=== PATIENT | female | born 2000 | race Caucasian/White ===

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

== ENCOUNTER 2020-07-07 01:19 | Outpatient (CLI) | payer MEDICAID, SELFPAY ==
--- NOTE | 2020-07-07 | DI.US_ITS ---
EXAM: US BREAST RT LIMITED CLINICAL HISTORY: RT BREAST LUMP, N63.11. TECHNIQUE: Limited ultrasound of the right breast was performed. This 19-year-old patient feels a p ossible lump laterally x1 week. She describes it as approximately the size of a marble. COMPARISON: None FINDINGS: There is dense fibroglandular tissue pattern. However, there is no evidence of solid or significant cystic lesion in the area of clinic concern. IMPRESSION: Negative ultrasound in the area of concern in the right breast Appropriate follow-up is repeat ultrasound examination in 3 months if she feels that this finding has not resolved. BI-RADS Category 3 - 3 month - Probably Benign Finding: Recommend follow-up ultrasound in 3 months Breast Density - Category D - Extremely dense Breast density Category C or D implies that the patient has dense breast tissue. Dense breast tissue can make it harder to find cancer on a mammogram. Dense breast tissue is also associated with an incr eased risk of breast cancer. This information about the result of the mammogram report was provided to the patient to raise their awareness. Use this report when you speak with the patient about their risks for breast cancer, which includes their family history. At that time, you may recommend additional screening tests (Ultrasoun d or MRI) as these tests may add significant information. A negative radiographic report should not delay biopsy if a dominant or clinically suspicious mass is present. Up to ten percent of cancers are not identified on mammography. A negative report may reinforce clinical impression. Adenosis and dense breasts may obscure an underlying neoplasm. False positive reports average 6 to 10%. Patient will receive a letter notifying them of these results.
== END 2020-07-07 01:20 ==
PROVIDERS: PCP General Practice; Visit Provider Naturopath
DX: N63.11 Unspecified lump in the right breast, upper outer quadrant (principal)
CPT/HCPCS: 76642

== ENCOUNTER 2020-08-30 04:23 | Outpatient (CLI) | payer MEDICAID, SELFPAY ==
[2020-08-30 11:03] LABS: HCT 40.4 % (36.0-46.0); HGB 13.1 g/dL (11.2-15.7); MCH 28.5 pg (27.0-33.0); MCHC 32.4 % (32.0-36.0); MCV 87.8 fL (80-95); MPV 10.8 fL (8.0-11.0); Platelet Count 265 10^3/uL (130-400); RDW-SD 41.7 fL; WBC 6.51 10^3/uL (4.4-10.8)
[2020-08-30 12:09] LABS: Iron 81 ug/dL (50-170); Total Iron Binding Capacity 293 ug/dL (250-450); Transferrin Sat 28 % (15-50)
[2020-08-30 12:22] LABS: Ferritin 31 ng/mL (8-252)
== END 2020-08-30 04:24 | disposition home or self-care (01) ==
LOC: LBO 04:23
PROVIDERS: PCP General Practice; Visit Provider Naturopath
DX: E61.1 Iron deficiency (principal)
CPT/HCPCS: 36415; 85027; 82728; 83540; 83550

== ENCOUNTER 2020-09-03 02:50 | Outpatient (CLI) | payer MEDICAID, SELFPAY ==
[2020-09-03 11:43] LABS: Kit/Specimen SENT
== END 2020-09-03 02:51 | disposition home or self-care (01) ==
LOC: LBO 02:50
PROVIDERS: PCP General Practice; Visit Provider Naturopath
DX: E61.1 Iron deficiency (principal)
CPT/HCPCS: 36415

== ENCOUNTER 2020-11-25 01:49 | Outpatient (CLI) | payer MEDICAID, SELFPAY ==
--- NOTE | 2020-11-25 | DI.US_ITS ---
Exam(s) US BREAST LT COMPLETE EXAM: US BREAST LT COMPLETE CLINICAL HISTORY: DENSE BREAST TISSUE TECHNIQUE: Ultrasound left breast performed using standard protocol. COMPARISON: US US BREAST RT LIMITED from 07/07/2020 US US BREAST RT LIMITED from 07/07/2020 US US BREAST RT COMPLETE from 11/25/2020 US US BREAST RT COMPLETE from 11/25/2020 FINDINGS: The entire breast was scanned. The patient had no left breast complaints. A 10 by 8 x 12 millimeter smoothly marginated hypoechoic nodule is identified in the 1 o'clock position of the left breast. T here is no evidence of shadowing. Findings consistent with a benign fibroadenoma. No additional fin dings. IMPRESSION: No sonographically suspicious finding. BI-RADS Category 2 - Benign Findings DATA REPOSITORY:
--- NOTE | 2020-11-25 | DI.US_ITS ---
Exam(s) US BREAST RT COMPLETE EXAM: US BREAST RT COMPLETE CLINICAL HISTORY: DENSE BREAST TISSUE,COMPARE TO 06/2020,R92.2 TECHNIQUE: Ultrasound right breast performed using standard protocol. COMPARISON: US US BREAST RT LIMITED from 07/07/2020 US US BREAST RT LIMITED from 07/07/2020 US US BREAST LT COMPLETE from 11/25/2020 US US BREAST LT COMPLETE from 11/25/2020 FINDINGS: No solid or cystic masses, hypoechoic foci, areas of abnormal shadowing, or areas of skin thickening. IMPRESSION: No sonographically suspicious finding. BI-RADS Category 1 - Negative DATA REPOSITORY:
== END 2020-11-25 02:09 ==
PROVIDERS: PCP General Practice; Visit Provider Naturopath
DX: R92.2 Inconclusive mammogram (principal)
CPT/HCPCS: 76642

== ENCOUNTER 2022-11-07 05:38 | Emergency (ER) | payer MEDICAID, SELFPAY ==
[2022-11-07 05:46] VITALS: BP 101/64; PULSE 113; RESP 22; TEMP 37.2; O2SAT 99
--- NOTE | 2022-11-07 06:02 | ED.GENADUL_ITS ---
Discharge Plan Disposition Patient Disposition: Home Condition: Improving Discharge Details Clinical Impression: Vomiting Primary Care Provider: Siobhan Ontiveros ED Provider: Iqra Abarca Home Meds and New Rx's Prescriptions: New ondansetron 8 mg tablet,disintegrating 8 mg PO Q8H PRNQty: 15 0RF Discharge Instructions Instructions: Acute Nausea and Vomiting (ED) Additional Instructions: Clear fluids and bland diet as tolerated. Zofran 1 tablet under your tongue every 8 hours as needed for nausea and vomiting. Return to ED for belly pain localized to 1 area, fever of 100.4 or above, frankly bloody stool or emesis, any other concerns. Discharge Data Discharge Date/Time-TO BE ENTERED AT DEPARTURE: 11/07/22 07:36 Medical Decision Making Patient reports having eaten some sour cream last night that smelled and tasted fine. Early exam is benign and she is afebrile. No trial at this time. Lab Data Lab results reviewed: Yes I reviewed the patient's lab results. Lab results narrative: WBC elevated at 14,000 with a left shift. The patient is not . She does have a mild anion gap. HPI General Date/Time Provider Initiated Documentation: 11/07/22 05:55 . History of Present Illness 22 year old F presents to the emergency department with the chief complaint of , HPI Narrative: This 22-year-old female patient presents with a chief complaint of nausea and vomiting that began at 1130 last night. Patient tells me that she last vomited about 5 minutes ago. She says she has had a small amount of loose stool. She denies abdominal pain. She has had no fever or shaking chills. There is no dysuria. She has no URI symptoms, chest pain, or shortness of breath. No one at home or work has been ill. The vomiting has been moderate and frequent. She has had no hematemesis. Her appetite was normal yesterday and she felt fine during the day. Related Data Home Medications Medication Instructions Recorded Confirmed ondansetron 8 mg disintegrating 8 mg PO Q8H PRN #15 tabs 11/07/22 tablet Previous Rx's Medication Instructions Recorded ondansetron 8 mg disintegrating 8 mg PO Q8H PRN #15 tabs 11/07/22 tablet Allergies Allergy/AdvReac Type Severity Reaction Status Date / Time No Known Allergies Allergy Unverified 11/07/22 05:46 General Stated Complaint: Nausea/Vomit/Diar JESUS: 3 Review of Systems Constitutional Constitutional: Denies chills, Denies fever(s), Denies headache(s) and Denies weakness Eyes Eyes: Denies diplopia and Reports other (no redness) ENT Ears, Nose, Mouth, and Throat: Denies otalgia, Denies headache(s), Denies nasal congestion, Denies nasal discharge, Denies neck pain and Denies sore throat Cardiovascular Cardiovascular: Denies chest pain, Denies palpitations and Denies dyspnea Respiratory Respiratory: Denies cough and Denies dyspnea Gastrointestinal Gastrointestinal: Denies abdominal pain, Reports diarrhea, Reports nausea and Reports vomiting Genitourinary Genitourinary: Denies dysuria Musculoskeletal Musculoskeletal: Denies myalgias, Denies muscle weakness, Denies neck pain, Denies numbness and Reports other (edema) Integumentary/Breasts Skin/Breast: Denies change in pigmentation and Denies rash Neurologic Neurologic: Denies headache(s), Denies numbness and Denies weakness Endocrine Endocrine: Denies palpitations PFSH All Active Problems (Updated 11/07/22 @ 06:50 by Iqra Abarca MD) Vomiting (Acute) Social History Smoking/Tobacco Use Status: Never Smoking risk assessment performed?: Yes Alcohol Intake: current Alcohol Intake frequency: a few times a month Alcohol type: beer Drug use: Never Substance use type: does not use Do you feel safe at home: Yes Do you feel safe in your relationship?: Yes Exam Const General: no acute distress, well developed, well groomed and not in acute distress Nutritional Appearance: well nourished Orientation: alert and oriented x3 HENMT Head: normocephalic and atraumatic Ears: external ears normal Mouth: oropharynx normal and moist mucous membranes Throat: posterior oropharynx normal Eyes Conjunctivae: conjunctivae normal Neck Neck: full ROM and supple Chest Chest: normal inspection of the chest Resp Effort & Inspection: normal respiratory effort Auscultation: clear to auscultation bilaterally Cardio Rate: regular rate Rhythm: regular rhythm Heart Sounds: no murmurs and no rubs GI Inspection: normal to inspection Palpation: soft, nontender and other (non distended) Auscultation: normal bowel sounds Skin General skin exam: no rashes or lesions noted and other (pink, warm, dry) Neuro General: patient alert, patient awake and patient oriented x3 Speech: speech normal Motor: other (DEL TORO) Sensory Exam: no sensory deficits noted Extrem General: normal to inspection, full ROM and pedal edema present Psych Mental Status: mental status grossly normal Speech and Movement: speech and movement normal Affect: normal affect Course Vital Signs Vital signs: Vital Signs Temperature 37.2 C 11/07/22 05:46 Pulse 113 H 11/07/22 05:46 Respiratory Rate 22 11/07/22 05:46 Blood Pressure 101/64 11/07/22 05:46 Pulse Oximetry 99 11/07/22 05:46 Temperature 37.2 C 11/07/22 05:46 Temperature Source Temporal Artery Scan 11/07/22 05:46 Pulse 113 H 11/07/22 05:46 Respiratory Rate 22 11/07/22 05:46 Respiratory Effort Normal, Non-Labored 11/07/22 05:49 Blood Pressure 101/64 11/07/22 05:46 Blood Pressure Position Sitting 11/07/22 05:46 Pulse Oximetry 99 11/07/22 05:46 Oxygen Delivery Method Room Air 11/07/22 05:46 Oxygen Flow Rate 0 11/07/22 05:46 PAWSS Have you Been Recently Intoxicated or Drunk Within the Last 30 days?: No Have you Ever Experienced Previous Episodes of Alcohol Withdrawal?: No Have you ever Experienced Withdrawal Seizures?: No Have you ever Experienced Delirium Tremens(DT)s?: No Have you ever undergone Alcohol Rehabilitation Treatment (i.e, inpt ot outpatient treatment programs)?: No Have you ever Experienced Blackouts?: No Have you ever Combined Alcohol with other Downers within the last 90 days?: No Have you ever Combined Alcohol with any other Substance of Abuse during the last 90 days?: No Positive Blood Alcohol level on Presentation? [PCS.BAL]: No Evidence of Increased Autonomic Activity (i.e. HR>120, tremor, sweating, agitation, nausea)?: No Result: 0
[2022-11-07] MEDS: Ondansetron 4 MG/2 ML VIAL 8 MG IVP (06:11)
[2022-11-07 06:12] LABS: Abs Immature Grans 0.08 10^3/uL (0.0-0.06); Absolute Basophil Count 0.06 10^3/uL (0.0-0.2); Absolute Lymphocyte Count 0.23 10^3/uL (1.2-3.4); Absolute Monocyte Count 0.83 10^3/uL (0.1-0.8); Absolute Neutrophil Count 13.26 10^3/uL (1.2-6.7); Basophils % 0.4; Eosinophils % 0.1; HCT 38.7 % (36.0-46.0); Immature Grans % 0.6; Lymphocytes % 1.6; MCH 28.8 pg (27.0-33.0); MCHC 33.6 % (32.0-36.0); MCV 86 fL (80-95); MPV 11.2 fL (8.0-11.0); Monocytes % 5.7; Neutrophils % 91.6; Platelet Count 205 10^3/uL (130-400); RBC 4.51 10^6/uL (3.93-5.22); RDW 12.9 % (11.7-14.6); WBC 14.48 10^3/uL (4.4-10.8)
[2022-11-07] MEDS: Normal Saline 1,000 ML 1000 ML IV (06:12)
[2022-11-07 06:22] LABS: Absolute Eosinophil Count 0.01 10^3/uL (0.0-0.7)
[2022-11-07 06:33] LABS: ALT 18 U/L (14-59); AST 17 U/L (15-37); Albumin 4.1 g/dL (3.4-5.0); Alkaline Phosphatase 57 U/L (46-116); BUN 16 mg/dL (7-18); CREATININE 0.8 mg/dL (0.55-1.02); Calcium 8.5 mg/dL (8.5-10.1); Chloride 107 mmol/L (98-107); Estimated GFR 106.11 (mL/min/1.73m2); Glucose 163 mg/dL (74-106); Magnesium 1.8 mg/dL (1.8-2.4); Potassium 3.4 mmol/L (3.5-5.1); Sodium 143 mmol/L (136-145)
[2022-11-07 06:40] LABS: HCG Qual (Serum) Negative
[2022-11-07 07:35] VITALS: BP 101/64; PULSE 88; RESP 22; TEMP 37.2; O2SAT 99
== END 2022-11-07 07:36 | disposition home or self-care (01) ==
PROVIDERS: Emergency Provider Emergency Medicine; PCP General Practice
DX: R11.2 Nausea with vomiting, unspecified (principal)
CPT/HCPCS: 80053; 96361; 96374; 99284; 83735; 84703; 85025; J2405

== ENCOUNTER 2023-07-16 14:35 | Emergency (ER) | payer MEDICAID, SELFPAY ==
[2023-07-16 14:40] VITALS: BP 97/65; PULSE 110; RESP 18; TEMP 37.3; O2SAT 98
--- NOTE | 2023-07-16 15:00 | RT.EKG_ITS ---
APPROVED REPORT Exam: Resting ECG Reason for Exam: tachy Patient Location: E HR:99 bpm ECG Measurements Heart Rate 99 AXIS CO 154 P 65 QRSd 81 QRS 91 QT 348 T 36 QTc 446 Conclusion Sinus rhythm...normal P axis, V-rate 60- 99 sinus rhythm, normal axis, normal intervals, no hypertrophy, non ischemic
[2023-07-16] MEDS: Dexamethasone 10 MG/ML VIAL PO (15:34)
[2023-07-16] MEDS: Ketorolac 10 MG TAB PO (15:34)
[2023-07-16] MEDS: Lidocaine 5% Patch 1 PATCH TP (15:34)
--- NOTE | 2023-07-16 15:37 | ED.GENADUL_ITS ---
Discharge Plan Disposition Patient Disposition: Home Condition: Improving Discharge Details Chief Complaint: Nk/Back Pain Clinical Impression: Cough Primary Care Provider: Siobhan Ontiveros ED Provider: John Conner Home Meds and New Rx's Prescriptions: No Action clarithromycin 500 mg tablet 500 mg PO BID Discharge Instructions Instructions: Acute Cough (ED) HPI General Date/Time Provider Initiated Documentation: 07/16/23 14:53 . HPI Narrative: 22-year-old diagnosed with influenza 3 weeks ago presents with persistent cough associate with back discomfort was evaluated at outside ER yesterday had chest x-rays performed which were negative, started on antitussive and clarithromycin, presents with persistent back discomfort with coughing. Denies shortness of breath syncope palpitations chest pain or history of thromboembolic disease. No leg swelling or pain. No exogenous estrogen use. Is comfortable when she is not coughing. Related Data Home Medications Medication Instructions Recorded Confirmed clarithromycin 500 mg tablet 500 mg PO BID 07/16/23 07/16/23 Allergies Allergy/AdvReac Type Severity Reaction Status Date / Time No Known Allergies Allergy Unverified 07/16/23 15:35 General Stated Complaint: Nk/Back Pain JESUS: 4 Review of Systems Narrative: Review of Systems Constitutional: negative Eyes: negative ENT: negative Cardiovascular: negative Respiratory: Cough Gastrointestinal: negative : negative Musculoskeletal: negative Skin: negative Neurologic: negative Psych: negative Exam Narrative Exam Narrative: Physical Examination General: alert, awake, cooperative, resting comfortably, no acute distress HEENT: normocephalic, atraumatic; PERRL, EOM intact, conjunctiva normal; no n radha discharge; moist mucous membranes, oral and pharyngeal mucosa normal, tolerating secretions Neck: supple, trachea midline; full ROM Chest: normal to inspection Respiratory: normal respiratory effort, speaking in full sentences, clear to auscultation, no wheezing, rales or rhonchi Cardiac: regular rate, regular rhythm, S1S2 intact, no murmurs rubs or gallops GI: abdomen soft, non-tender, non-distended; no palpable mass or hepatosplenomegaly Skin: no lesions, rashes or trauma appreciated Neuro: AAOx3, normal speech, moving all extremities Extremities: No peripheral edema Psych: Appropriate mood and affect Course Vital Signs Vital signs: Vital Signs Temperature 37.3 C 07/16/23 14:40 Pulse 110 H 07/16/23 14:40 Respiratory Rate 18 07/16/23 14:40 Blood Pressure 97/65 L 07/16/23 14:40 Pulse Oximetry 98 07/16/23 14:40 Temperature 37.3 C 07/16/23 14:40 Temperature Source Tympanic 07/16/23 14:40 Pulse 110 H 07/16/23 14:40 Respiratory Rate 18 07/16/23 14:40 Respiratory Effort Normal 07/16/23 15:34 Blood Pressure 97/65 L 07/16/23 14:40 Blood Pressure Position Supine 07/16/23 14:40 Pulse Oximetry 98 07/16/23 14:40 Oxygen Delivery Method Room Air 07/16/23 14:40 Oxygen Flow Rate 0 07/16/23 14:40 Pain Level 2 07/16/23 14:40 Comment 2/10 at rest, 8/10 when coughing 07/16/23 14:40 Medical Decision Making 22-year-old female no past medical history presents with persistent cough and back discomfort in the setting of recent influenza, seen at outside emergency department negative x-rays yesterday, normoxic speaking full sentences lungs clear bilaterally, pain worse with coughing located mainly left upper back, no peripheral edema no leg swelling or pain, no history of thromboembolic disease, no exogenous estrogen use no recent travel no recent trauma. EKG normal sinus rhythm nonischemic; consider musculoskeletal irritation due to persistent coughing versus pleurisy versus costochondritis versus early pneumonia versus pleural effusion versus less likely pneumothorax low suspicion for PE ACS or aortic pathology given history and physical. Had shared decision conversation with patient and family regarding pursuing further workup discussed risk and benefits of blood work and CT scan/repeat x-ray, patient would like to trial analgesia anti-inflammatory and reassess symptoms if no improvement will consider blood work and further imaging, high clinical suspicion for musculoskeletal versus viral respiratory illness 16: 34 resting fully no acute distress. Vital signs improving. Cough greatly reduced. Home care instructions return precautions Quality:SDOH Health Related Social Needs: No Data to Display PFSH All Active Problems (Updated 07/16/23 @ 16:34 by John Conner MD) Cough (Acute) Social History Smoking/Tobacco Use Status: Never Smoking risk assessment performed?: Yes Alcohol Intake: current Alcohol Intake frequency: a few times a month Alcohol type: beer Drug use: Never Substance use type: does not use Do you feel safe at home: Yes Do you feel safe in your relationship?: Yes
[2023-07-16 15:43] LABS: Bilirubin Negative (Negative); Blood Negative (Negative); Clarity Clear (Clear); Glucose Negative (Negative); Ketones Negative (Negative); Leukocyte Esterase Negative (Negative); Nitrite Negative (Negative); Urobilinogen 0.2 mg/dL (Up to 0.2); pH 5.5 (5-8)
[2023-07-16 16:18] VITALS: BP 94/65; PULSE 86; RESP 18; TEMP 37.2; O2SAT 100
== END 2023-07-16 17:18 | disposition home or self-care (01) ==
PROVIDERS: Emergency Provider Emergency Medicine; PCP General Practice
DX: R05.1 Acute cough (principal); M54.6 Pain in thoracic spine
CPT/HCPCS: 81025; 93005; 99283; 81003; 93010; J1100

== ENCOUNTER 2024-01-27 19:39 | Emergency (ER) | payer MEDICAID, SELFPAY ==
[2024-01-27 19:40] VITALS: BP 98/56; PULSE 94; RESP 19; TEMP 36.8; O2SAT 97
--- NOTE | 2024-01-27 19:45 | ED.GENADUL_ITS ---
Discharge Plan Disposition Patient Disposition: Home Condition: Stable Discharge Details Clinical Impression: Lumbar back pain Primary Care Provider: Siobhan Ontiveros ED Provider: Ken Burnham Home Meds and New Rx's Prescriptions: New ketorolac 10 mg tablet 10 mg PO QID 5 Days Qty: 20 0RF Rx Instructions: maximum total duration of 5 days from all oral, intranasal, or parenteral f ormulations cyclobenzaprine 10 mg tablet 10 mg PO TID PRNQty: 30 0RF prednisone 20 mg tablet 40 mg PO BID 5 Days Qty: 20 0RF Discharge Instructions Instructions: Ketorolac (Systemic), Cyclobenzaprine, Prednisone, Low Back Pain ED Additional Instructions: You were seen in the emergency department for your acute right sided lumbar back pain, this is likely due to partial disc herniation. Please use therapeutic dosing of Tylenol (acetamenophen) & Advil (ibuprofen) in an alternating fashion as follows: Take 1000mg of Tylenol every 6 hours without missing doses- that is 4 times per day. Central in between the Tylenol dosings, take the prescribed 10 mg ketorolac tablets also on a 6-hour schedule-after 5 days substitute this with 400 mg of ibuprofen The daily maximum dosing of Tylenol is 4000mg, and the daily maximum dosing of Advil is 2400mg. This is safe to do for weeks. Please note that some common cold medications & prescription pain medications may contain acetamenophen and you need to read OTC drug labels and factor that in to maximum daily dosings. Take the prescribed cyclobenzaprine 3 times per day as needed for skeletal muscle relaxation, do not drive heavy equipment on this medicine as it can make you somewhat woozy. Plan [id number] Lidoderm patch to the area of pain for 12 hours each day, apply topical Voltaren gel to the area of pain as desired, take the prescribed prednisone course for the next 5 days, alternate heat and ice to the area and perform gentle massage. Follow-up with physical therapy visits and your primary care provider may order you an MRI for nonresolving symptoms, return to emergency department at once for any urinary retention, bowel incontinence, numbness to the groin, weakness of lower extremities. Referrals: Siobhan Ontiveros [Primary Care Provider] - HPI General Date/Time Provider Initiated Documentation: 01/27/24 19:45 . HPI Narrative: 23 year-old female presents to ED today by POV/ambulating with her father with a chief complaint of R lower back pain, after feeling her back go out 2 weeks ago lifting a folding chair. Quality described as sharp back pain, muscle spasms, no radiation to urinary retention, bowel incontinence, leg weakness, dysuria, hematuria. Severity is described as 8/10. Palliating factors include nothing specific- movement. Provoking factors include nothing specific. Patient not anticoagulated. Related Data Home Medications ?Medication ?Instructions ?Recorded ?Confirmed cyclobenzaprine 10 mg tablet 10 mg PO TID PRN #30 tabs 01/27/24 ketorolac 10 mg tablet 10 mg PO QID 5 days #20 tabs 01/27/24 prednisone 20 mg tablet 40 mg (2 x 20 mg) PO BID 5 days 01/27/24 #20 tabs Previous Rx's ?Medication ?Instructions ?Recorded cyclobenzaprine 10 mg tablet 10 mg PO TID PRN #30 tabs 01/27/24 ketorolac 10 mg tablet 10 mg PO QID 5 days #20 tabs 01/27/24 prednisone 20 mg tablet 40 mg (2 x 20 mg) PO BID 5 days 01/27/24 #20 tabs Allergies Allergy/AdvReac Type Severity Reaction Status Date / Time No Known Allergies Allergy Verified 01/27/24 19:40 General Stated Complaint: Nk/Back Pain JESUS: 3 Review of Systems All systems reviewed & are unremarkable except as noted in HPI and below Exam Narrative Exam Narrative: GENERAL APPEARANCE: Well-nourished, non-toxic, awake and alert, atraumatic, no acute distress. SKIN: Warm, pink, dry, intact, without rashes/lesions/ulcerations. HEAD: Normocephalic, atraumatic, normal hair distribution for gender/age. EYES: Normal conjunctiva, no exudates on lids/lashes. ENT: Nares patent, no circumoral cyanosis, no facial swelling NECK: Supple, trachea midline, painless cervical ROM. LUNGS/CHEST: Non-labored respirations, normal A/P diameter, symmetrical expansion, no chest wall deformity HEART (CV/PV): No peripheral edema, no JVD. ABDOMEN: Soft, non-distended, no guarding. MSK: Normal ROM, no swelling/deformity to bilateral UEs or LEs, moving all extremities without weakness, no cyanosis, spine midline without tenderness, normal curvature, right paraspinal lumbar muscular tension, no midline vertebral tenderness/crepitus/step-offs, strength 5/5 bilateral lower extremities, no saddle anesthesia NEURO: Mental Status AAOx4 - alert to person, place, time, events No facial droop, no forehead involvement. Motor: No focal weakness - strength 5/5 in bilateral UEs and LEs, proximal and distal, symmetric. Sensory: sensation intact to light touch globally. Gait normal: patient ambulated without ataxia into ED room. PSYCH: euthymic, cooperative, pleasant, appropriate speech Course Vital Signs Vital signs: Vital Signs Temperature 36.8 C 01/27/24 19:40 Pulse 94 H 01/27/24 19:40 Respiratory Rate 19 01/27/24 19:40 Blood Pressure 98/56 L 01/27/24 19:40 Pulse Oximetry 97 01/27/24 19:40 Temperature 36.8 C 01/27/24 19:40 Temperature Source Temporal Artery Scan 01/27/24 19:40 Pulse 94 H 01/27/24 19:40 Respiratory Rate 19 01/27/24 19:40 Respiratory Effort Normal 01/27/24 19:44 Blood Pressure 98/56 L 01/27/24 19:40 Blood Pressure Position Sitting 01/27/24 19:40 Pulse Oximetry 97 01/27/24 19:40 Oxygen Delivery Method Room Air 01/27/24 19:40 Oxygen Flow Rate 0 01/27/24 19:40 Pain Level 3 01/27/24 19:40 Medical Decision Making This dictation utilizes [id number] dictation software and may contain unedited grammatical errors. 23 year-old female presents to ED today by POV/ambulating with her father with a chief complaint of R lower back pain, after feeling her back go out 2 weeks ago lifting a folding chair. Quality described as sharp back pain, muscle spasms, no radiation to urinary retention, bowel incontinence, leg weakness, dysuria, hematuria. Severity is described as 8/10. Palliating factors include nothing specific- movement. Provoking factors include nothing specific. Patients' medical history: Negative, otherwise healthy. Family and social history: Noncontributory. Pertinent exam findings / vital signs include lumbar paraspinal muscle tension on the right side, no midline vertebral tenderness/crepitus/step-offs, neurovascular intact in bilateral lower extremities, no saddle anesthesia. Differential / pathologies of concern include lumbar back pain, lumbar muscle spasm, not sciatica syndrome, not cauda equina. Diagnostic studies of: -None. Interventions of: -Tylenol, Toradol, cyclobenzaprine, Lidoderm patch, outpatient prescription for Toradol, cyclobenzaprine, prednisone. ED Course/Assessment/Plan: 23-year-old female seen with right-sided lumbar back pain after awkwardly lifting a folding chair and feeling something give out on her back, she is attempted relief with chiropractor but has gotten slightly worse, we did recommend that she seek MRI from her primary care provider while trying conservative management prior to it radiating imaging studies this evening. Counseled on therapeutic dosing and back pain regimen, strict return criteria for signs of cauda equina. Findings not consistent with cauda equina, vertebral fracture, neurovascular compromise of lower extremities. Disposition of lumbar back pain. Patient verbalized understanding of the plan and return to ED criteria and engaged in shared decision making. Medical Records Medical records reviewed: Yes I reviewed the patient's medical records. Quality:SDOH Health Related Social Needs: No Data to Display PFSH All Active Problems (Updated 01/27/24 @ 20:16 by CHERIE Parker) Lumbar back pain (Acute) Social History Smoking/Tobacco Use Status: Never Smoking risk assessment performed?: Yes Alcohol Intake: current Alcohol Intake frequency: a few times a month Alcohol type: beer Drug use: Never Substance use type: does not use Do you feel safe at home: Yes Do you feel safe in your relationship?: Yes
[2024-01-27] MEDS: Acetaminophen 500 MG TAB 1000 MG PO (20:25)
[2024-01-27] MEDS: Lidocaine 5% Patch 1 PATCH TP (20:25)
[2024-01-27] MEDS: Ketorolac 10 MG TAB PO (20:25)
[2024-01-27] MEDS: Cyclobenzaprine 10 MG TAB PO (20:25)
== END 2024-01-27 20:48 | disposition home or self-care (01) ==
PROVIDERS: Emergency Provider Physician Assistant; PCP General Practice
DX: M54.50 Low back pain, unspecified (principal)
CPT/HCPCS: 99283

== ENCOUNTER 2024-09-06 11:54 | Emergency (ER) | payer MEDICAID, SELFPAY ==
[2024-09-06 11:57] VITALS: BP 104/72; PULSE 104; RESP 18; TEMP 36.8; O2SAT 100
[2024-09-06 12:00] VITALS: BP 104/72; PULSE 104; RESP 18; TEMP 36.8; O2SAT 100
--- NOTE | 2024-09-06 12:15 | DI.RAD_ITS ---
Exam(s) XR CHEST 2V PA LATERAL EXAM: XR CHEST 2V PA LATERAL CLINICAL HISTORY: cough. TECHNIQUE: 2D digital imaging was performed. COMPARISON: No exams were available for comparison FINDINGS: 2 views: Heart size is normal. The mediastinum is not widened. Lungs are clear. No infiltrates nor pleural effusions. IMPRESSION: No acute pulmonary findings. DATA REPOSITORY: RADIATION DOSE DELIVERED:
--- NOTE | 2024-09-06 12:36 | W.ED.GENAD ---
Discharge Plan Disposition Patient Disposition: Home Condition: Stable Discharge Details Clinical Impression: URI (upper respiratory infection), Cough Primary Care Provider: Siobhan Ontiveros ED Provider: Yaniv Ruby Home Meds and New Rx's Prescriptions: New promethazine 6.25 mg/5 mL syrup 12.5 mg PO Q6H PRN (Reason: cough) Qty: 120 0RF benzonatate 100 mg capsule 100 mg PO TID PRN (Reason: cough) Qty: 30 0RF Discharge Instructions Instructions: Upper respiratory infection in adults - Discharge instructions Additional Instructions: COVID flu testing are negative today. Your chest x-ray was reviewed and does not reveal any signs of a pneumonia. There is no indication for antibiotics. Prescription cough medication was sent to the pharmacy. Please continue [id number] medications to help with your symptoms, drink lots of water. Follow-up with your primary care provider as needed. HPI General Date/Time Provider Initiated Documentation: 09/06/24 12:03. Limitations to Documentation: no limitations. Information obtained by: patient. HPI Narrative: 23-year-old female without significant past medical history presents for evaluation of cough. She reports that over the last 4 days she has had some mild symptoms of cough, sore throat and runny nose. She has been taking [id number] DayQuil and honey. She reports that last night she had a very significant coughing fit which is what prompted her visit to the emergency department today. She denies any fever. She reports that she has had 3 illnesses over the last month. She has been traveling Related Data Home Medications ?Medication ?Instructions ?Recorded ?Confirmed benzonatate 100 mg capsule 100 mg PO TID PRN cough #30 caps 09/06/24 promethazine 6.25 mg/5 mL oral 12.5 mg (10 mL) PO Q6H PRN cough 09/06/24 syrup #120 mL Previous Rx's ?Medication ?Instructions ?Recorded benzonatate 100 mg capsule 100 mg PO TID PRN cough #30 caps 09/06/24 promethazine 6.25 mg/5 mL oral 12.5 mg (10 mL) PO Q6H PRN cough 09/06/24 syrup #120 mL Allergies Allergy/AdvReac Type Severity Reaction Status Date / Time No Known Allergies Allergy Verified 09/06/24 11:59 General Stated Complaint: GenMedical JESUS: 3 Exam Narrative Exam Narrative: Review of Systems: All systems reviewed & are unremarkable except as noted in HPI and below Well-developed, no acute distress NCAT PERRL, normal conjunctiva TMs unremarkable bilaterally oropharynx with mild erythema, no tonsillar enlargement or exudate RRR Unlabored respiratory effort, no hypoxia or wheezing, diminished breath sounds in the right lower lung greene Course Vital Signs Vital signs: Vital Signs Temperature 36.8 C 09/06/24 11:57 Pulse 104 H 09/06/24 11:57 Respiratory Rate 18 09/06/24 11:57 Blood Pressure 104/72 09/06/24 11:57 Pulse Oximetry 100 09/06/24 11:57 Temperature 36.8 C 09/06/24 12:00 Temperature Source Temporal Artery Scan 09/06/24 12:00 Pulse 104 H 09/06/24 12:00 Respiratory Rate 18 09/06/24 12:00 Blood Pressure 104/72 09/06/24 12:00 Pulse Oximetry 100 09/06/24 12:00 Medical Decision Making Emergent evaluation of URI symptoms and cough. Initial differential includes pneumonia, viral illness, unlikely to be reactive airway. Given the sick symptoms accompanying the cough, lack of shortness of breath, lack of tachycardia and hypoxia I doubt a pulmonary embolism due to her recent travels. Viral testing is negative. Chest x-ray obtained and independently interpreted, no consolidation, no pulmonary edema. Recommend continued supportive care. Prescription cough medication sent to the pharmacy. Quality:[facility] Health Related Social Needs: No Data to Display [facility] All Active Problems (Updated 09/06/24 @ 13:04 by Yaniv Ruby MD) Cough (Acute) URI (upper respiratory infection) (Acute) Social History Smoking/Tobacco Use Status: Never Smoking risk assessment performed?: Yes Alcohol Intake: current Alcohol Intake frequency: a few times a month Alcohol type: beer Drug use: Never Substance use type: does not use Do you feel safe at home: Yes Do you feel safe in your relationship?: Yes PAWSS Have you Been Recently Intoxicated or Drunk Within the Last 30 days?: No Have you Ever Experienced Previous Episodes of Alcohol Withdrawal?: No Have you ever Experienced Withdrawal Seizures?: No Have you ever Experienced Delirium Tremens(DT)s?: No Have you ever undergone Alcohol Rehabilitation Treatment (i.e, inpt ot outpatient treatment programs)?: No Have you ever Experienced Blackouts?: No Have you ever Combined Alcohol with other Downers within the last 90 days?: No Have you ever Combined Alcohol with any other Substance of Abuse during the last 90 days?: No Positive Blood Alcohol level on Presentation? [PCS.BAL]: No Evidence of Increased Autonomic Activity (i.e. HR>120, tremor, sweating, agitation, nausea)?: No Result: 0
[2024-09-06 13:17] VITALS: RESP 16
--- NOTE | 2024-09-06 13:20 | DI.VRAD_ITS ---
PROCEDURE INFORMATION: Exam: XR Chest Exam date and time: 09/06/2024 12:45 PM Age: 23 years old Clinical indication: Cough TECHNIQUE: Imaging protocol: Radiologic exam of the chest. Views: 2 views. COMPARISON: No relevant prior studies available. FINDINGS: Lungs: Unremarkable. No consolidation. Pleural spaces: Unremarkable. No pleural effusion. No pneumothorax. Heart/Mediastinum: Unremarkable. No cardiomegaly. Bones/joints: Unremarkable. IMPRESSION: No acute findings. Dictated and Authenticated by: Oskar Sanchez MD. Orderin Flori Justice MD
== END 2024-09-06 13:19 | disposition home or self-care (01) ==
LOC: ER 13:25
PROVIDERS: Emergency Provider Emergency Medicine; PCP General Practice
DX: J06.9 Acute upper respiratory infection, unspecified (principal); R05.9 Cough, unspecified
CPT/HCPCS: 99284; 71046; 99283

== ENCOUNTER 2024-09-21 17:55 | Emergency (ER) | payer MEDICAID, SELFPAY ==
[2024-09-21 18:06] VITALS: BP 101/67; PULSE 94; RESP 12; TEMP 36.6; O2SAT 99
--- NOTE | 2024-09-21 18:27 | ED.GENADUL_ITS ---
Discharge Plan Disposition Patient Disposition: Home Discharge Details Clinical Impression: Bug bite Primary Care Provider: Hayley Mitchell ED Provider: Amber Nava Home Meds and New Rx's Prescriptions: No Action No Known Home Meds Discharge Instructions Instructions: Insect Bites and Stings ED Additional Instructions: There is no sign of infection at this time to your bug bites. You may use antihistamine cream and cool compresses to help with swelling and discomfort. Do not scratch at the bites, as it can lead to infection Follow-up with your primary care provider if you have any questions or concerns. Return to care if you develop any signs of infection such as increasing redness, pus drainage, increasing pain, streaking up the leg, or if you are very worried and need to be rechecked again immediately HPI General Date/Time Provider Initiated Documentation: 09/21/24 18:16 . HPI Narrative: Nina is a 23 year old female who presents to the emergency department today for evaluation of bug bites. She reports that yesterday she was sitting outside during lunch, sustained bug bites to her legs. She is worried because they are reddened and slightly swollen, wanted to make sure they got checked out. She 2 bites, 1 on each leg to the lower legs. She describes the bites as itchy and somewhat tender. No distal numbness/tingling, joint swelling, fever/chills, facial swelling, sore throat, cough, shortness of breath, nausea/vomiting. She is not sure what kind of insects were flying around. No other areas of lesions/bites. Denies significant past medical history or immunocompromise. Physical exam remarkable for slightly erythematous lesions/wheals to legs with mild surrounding edema. No drainage. No streaking. Full range of motion to joints, no joint swelling. History and presentation consistent with uncomplicated bug bites with surrounding hypersensitivity reaction. No red flags concerning for cellulitis or systemic reaction requiring antibiotics or systemic steroids. Reviewed discharge instructions with patient, including symptomatic management and red flags indicating need for return to emergency care. She does have a PCP she can follow up with. Related Data Home Medications ?Medication ?Instructions ?Recorded ?Confirmed Unknown [No Known Home Meds] 09/21/24 09/21/24 Allergies Allergy/AdvReac Type Severity Reaction Status Date / Time No Known Allergies Allergy Verified 09/21/24 18:09 General Stated Complaint: RashLesion JESUS: 4 Review of Systems Narrative: see HPI Exam Const General: cooperative, healthy appearing, comfortable, no acute distress, well developed and well groomed Nutritional Appearance: average body habitus and well nourished Orientation: alert and oriented x3 HENMT Head: normal to inspection Ears: hearing grossly normal bilaterally General nose exam: external nose normal Face and sinus: normal facial exam Mouth: no muffled voice Resp Effort & Inspection: normal respiratory effort and able to speak in complete sentences Skin Lesions: lesion noted wheal bilateral lower leg size (approx 1 cm diameter), color blanching and surface with an erythematous base; not crusted and not dry Trauma: no lacerations or abrasions Extrem General: normal to inspection and no joint enlargement Course Vital Signs Vital signs: Vital Signs Temperature 36.6 C 09/21/24 18:06 Pulse 94 H 09/21/24 18:06 Respiratory Rate 12 09/21/24 18:06 Blood Pressure 101/67 09/21/24 18:06 Pulse Oximetry 99 09/21/24 18:06 Temperature 36.6 C 09/21/24 18:06 Temperature Source Oral 09/21/24 18:06 Pulse 94 H 09/21/24 18:06 Respiratory Rate 12 09/21/24 18:06 Blood Pressure 101/67 09/21/24 18:06 Blood Pressure Position Sitting 09/21/24 18:06 Pulse Oximetry 99 09/21/24 18:06 Oxygen Delivery Method Room Air 09/21/24 18:06 Oxygen Flow Rate 0 09/21/24 18:06 Medical Decision Making Quality:SDOH Health Related Social Needs: No Data to Display PFSH All Active Problems (Updated 09/21/24 @ 18:[address]) Bug bite (Acute) Cough (Acute) URI (upper respiratory infection) (Acute) Social History Smoking/Tobacco Use Status: Never Smoking risk assessment performed?: Yes Alcohol Intake: current Alcohol Intake frequency: a few times a month Alcohol type: beer Drug use: Never Substance use type: does not use Do you feel safe at home: Yes Do you feel safe in your relationship?: Yes
== END 2024-09-21 18:37 | disposition home or self-care (01) ==
LOC: ER 18:42
PROVIDERS: Emergency Provider Nurse Practitioner Family; PCP Registered Nurse
DX: S80.861A Insect bite (nonvenomous), right lower leg, initial encounter (principal); S80.862A Insect bite (nonvenomous), left lower leg, initial encounter; W57.XXXA Bitten or stung by nonvenomous insect and other nonvenomous arthropods, initial encounter
CPT/HCPCS: 99283; 99282